=== PATIENT | male | born 1980 | race African-American/Black ===

== ENCOUNTER 2017-01-24 10:02 | Inpatient (IN) | payer OTHER ==
--- NOTE | ~2017-01-24 | PN ---
Unit #: [id number] #: [id number] Patient: ISAI AUGUSTINE [id number] [facility] [address] [place] [address] [id number] I MR#: [id number] NAME: ISAI AUGUSTINE ROOM: [facility] Age: 36 Sex: M Admission Date: 01/24/2017 : 1980 Attending Physician: Alina Magallon M.D. Admitting Physician: Alina Magallon M.D. Primary Care Physician: Primary Care Physician Lety ACEVES PROGRESS NOTES DATE OF SERVICE: 01/25/2017 SUBJECTIVE Mr. Augustine is a 36-year-old male who was seen today and chart was reviewed, and case was discussed with the staff. He has been anxious, withdrawn, rather seclusive to himself. Meanwhile, he has been cooperative with treatment recommendation and has been taking medications and tolerating them fairly well with no reported side effects. MENTAL STATUS EXAMINATION Young male who was casually dressed with a fair personal hygiene and appears to be in no acute distress or discomfort. He was awake and alert on interaction with intact orientation. His mood was anxious with a congruent affect. He denies any suicidal or homicidal ideation, and also denies any auditory or visual hallucinations. His insight and judgment remain slightly impaired. TREATMENT PLAN 1. We will continue him on his current treatment protocol. We will monitor his response to the medication and make further adjustments as needed. We will recommend initiating antidepressant anxiolytic therapy. 2. Supportive therapy was provided to the patient. 3. We will continue to follow up. Dictated by... Pawan Muro/carlosl TD: 01/26/2017 07:46 JOB #: [id number] Unit #: [id number] #: [id number] Patient: ISAI AUGUSTINE PEAANOMY PROGRESS NOTES Page 1 of 1 X Alina Magallon MD PROGRESS NOTE
--- NOTE | ~2017-01-24 | DS ---
Unit #: [id number] #: [id number] [facility]: [facility]AG[facility] [id number] [facility] [place] [address] [id number] I MR#: [id number] NAME: ISAI MONDRAGON ROOM: [facility] Age: 36 Sex: M Admission Date: 01/24/2017 : 1980 Discharge Date: 01/28/2017 Attending Physician: Alina Magallon M.D. Primary Care Physician: Primary Care Physician No DISCHARGE SUMMARY IDENTIFYING DATA Mr. Mondragon is a 26-year-old male, who was self-referred to the hospital. DISCHARGE DIAGNOSES Psychiatric: Major depressive disorder, recurrent, moderate, without psychotic features; alcohol dependence, moderate, in acute withdrawals. Medical: None. Stressors: Moderate psychosocial stressors. HISTORY OF PRESENT ILLNESS Please see initial psychiatric evaluation for details. PAST PSYCHIATRIC HISTORY Please see initial psychiatric evaluation for details. PAST MEDICAL HISTORY Please see initial psychiatric evaluation for details. HOSPITAL COURSE The patient was admitted to the adult psychiatric unit at [facility] and was oriented to the hospital environment. Routine p.r.n. medications were initiated and he was started back on his home medications and medications were adjusted, and he was started on Effexor and Seroquel. Medications were gradually titrated up, however, the patient was seemed to be showing poor insight into his situation. He decided that he wanted to leave against medical advice, and he was denying any suicidal ideation, intent, or plan. He was not meeting criteria for involuntary psychiatric hospitalization , and as such, it was decided that he will be discharged home and will continue treatment on an outpatient basis. DISCHARGE MEDICATIONS None. DISCHARGE CONDITION Stable. PROGNOSIS Guarded. Dictated by... Alina Magallon M.D. Unit #: [id number] #: [id number] Patient: ISAI MONDRAGON IAA/modl TD: 02/25/2017 13:10 JOB #: [id number] DISCHARGE SUMMARY Page 1 of 1 X Alina Magallon MD X DISCHARGE SUMMARY
--- NOTE | ~2017-01-24 | HP ---
Unit #: [id number] #: [id number] Patient: ISAI AUGUSTINE [id number] [facility] [address] [place] [address] [id number] I MR#: [id number] NAME: ISAI AUGUSTINE ROOM: 71 Age: 36 Sex: M Admission Date: 01/24/2017 : 1980 Attending Physician: Alina Magallon M.D. Admitting Physician: Alina Magallon M.D. Primary Care Physician: Primary Care Physician No HISTORY AND PHYSICAL HISTORY OF PRESENT ILLNESS The patient is a 36-year-old male admitted to [facility] on 01/24/2017 for anxiety and aggression. PAST MEDICAL HISTORY The patient denies. PAST SURGICAL HISTORY Appendectomy. SOCIAL HISTORY The patient is unemployed. He lives with his and his daughter. He smokes one pack of cigarettes per week. Smokes four joints per day and uses opiates and benzodiazepines on a weekly basis. FAMILY MEDICAL HISTORY Noncontributory. ALLERGIES No known drug allergies. CURRENT MEDICATIONS The patient is not on any home medications. REVIEW OF SYSTEMS CONSTITUTIONAL: No fever or chills. HEENT: Denies any sore throat, ear pain or runny nose. CARDIOVASCULAR: Denies chest pain, irregular heart rhythm or palpitations. CHEST: Denies shortness of breath or cough. No hemoptysis. GASTROINTESTINAL: Denies nausea, vomiting, diarrhea or chronic constipation. ENDOCRINE: Denies history of increased thirst or urination. No recent significant weight loss or gain. GENITOURINARY: Denies dysuria, frequency, or hematuria. SKIN: Denies any rashes. HEMATOLOGIC: Denies history of increased bleeding or bruising. MUSCULOSKELETAL: Denies any hot, swollen joints. No generalized muscle pain. NEUROLOGIC: Denies problems with vision or speech. No frequent, severe headaches. No numbness, tingling or weakness in any extremities. Denies loss of bladder or bowel control. Unit #: [id number] #: [id number] Patient: ISAI AUGUSTINE PHYSICAL EXAM GENERAL: He is awake, alert and oriented in no acute distress. VITAL SIGNS: Temperature 98.6, heart rate 70, respiration 18, blood pressure 120/77. SKIN: Warm and dry without rash or lesion. HEENT: Normocephalic. TMs not viewed. Oral and nasal passages clear. Conjunctivae clear. PERRLA. EOMs intact. NECK: Supple without lymphadenopathy or thyromegaly. HEART: Regular rate and rhythm without murmur. LUNGS: Clear. ABDOMEN: Soft, nontender. : Not done. EXTREMITIES: No evidence of cyanosis, clubbing or edema. Moves all without focal deficit. NEUROLOGICAL: Grossly within normal limits. Cranial Nerves: II: Visual light are intact. III, IV AND : Extraocular movements are intact. Pupils are equal, round and reactive to light. V: Facial sensation is grossly normal. VII: Facial movements and expression are normal. VIII: Auditory acuity grossly intact. IX, X: Uvula is midline. Phonation is normal. XI: Patient shrugs shoulders and turns head normally. XII: Tongue protrudes in the midline. Sensory and Motor Function: Sensory and motor sensation is grossly normal. Motor: moves all extremities well. IMPRESSION 1. Psychiatric admission. 2. Polysubstance use. RECOMMENDATIONS Psychiatric per psychiatrist. MEDICAL: No contraindication to participate in facility activities. MEDICAL PROGNOSIS Good. MEDICAL CONDITION Stable. Dictated by... Ian Vieyra/cuco TD: 01/25/2017 00:06 JOB #: [id number] Unit #: [id number] #: [id number] Patient: ISAI AUGUSTINE HISTORY AND PHYSICAL Page 1 of 1 X CHARLES ZAVALA APRN HISTORY AND PHYSICAL
--- NOTE | ~2017-01-24 | PN ---
Unit #: [id number] #: [id number] Patient: ISAI AUGUSTINE [id number] [facility] [address] [place] [address] [id number] I MR#: [id number] NAME: ISAI AUGUSTINE ROOM: [facility] Age: 36 Sex: M Admission Date: 01/24/2017 : 1980 Attending Physician: Alina Magallon M.D. Admitting Physician: Alina Magallon M.D. Primary Care Physician: Primary Care Physician Lety MCKENZIE NOTES DATE OF SERVICE 01/26/2017 DISCUSSION Mr. Augustine is a 36-year-old male who was seen today. Chart was reviewed and case was discussed with staff. He has been anxious, withdrawn, depressed, and rather seclusive to himself but has not shown any agitation or irritability. Meanwhile, he has been taking his medications which were just initiated yesterday without any tolerability issues but has not been able to show any therapeutic response yet. MENTAL STATUS EXAMINATION Young male who is casually dressed with fair personal hygiene, appears to be in no acute distress or discomfort. The patient was awake and alert with impaired attention and concentration. His mood is anxious with congruent affect. He denies any suicidal or homicidal ideations and also denies any auditory or visual hallucinations. His insight and judgment remain slightly impaired. TREATMENT PLAN 1. We will continue him on his current medications and treatment protocol. We will monitor his response to the medications and make further adjustments as needed. 2. We will continue to follow up. Dictated by... Pawan Muro/lillie TD: 01/27/2017 08:58 JOB #: [id number] Unit #: [id number] #: [id number] Patient: ISAI AUGUSTINE PROGRESS NOTES Page 1 of 1 X Alina Magallon MD PROGRESS NOTE
--- NOTE | ~2017-01-24 | PN ---
Unit #: [id number] #: [id number] Patient: ISAI AUGUSTINE [id number] [facility] [address] [place] [address] [id number] I MR#: [id number] NAME: ISAI AUGUSTINE ROOM: [facility] Age: 36 Sex: M Admission Date: 01/24/2017 : 1980 Attending Physician: Alina Magallon M.D. Admitting Physician: Alina Magallon M.D. Primary Care Physician: Primary Care Physician Lety MCKENZIE NOTES DATE OF SERVICE 01/27/2017 DISCUSSION Mr. Augustine is a 36-year-old male with mood disorder who was seen today. Chart was reviewed and case was discussed with the staff. He has been anxious, withdrawn, and rather seclusive to himself and was lying in his bed and reports not feeling better and reported that he has not been sleeping, and his depression is not getting any better. Meanwhile, he has been taking the medications and tolerating them fairly well with no reported side effects. MENTAL STATUS EXAMINATION Young male who is casually dressed with fair personal hygiene, appears to be in no acute distress or discomfort. He was awake and alert on interaction with intact orientation. His mood is anxious and depressed with congruent affect. His speech is slow and goal-directed. He reports having suicidal ideation but denies any homicidal ideations and also denies any auditory or visual hallucinations. His insight and judgment remain slightly impaired. TREATMENT PLAN 1. We will continue him on his current medications and treatment protocol. We will monitor his response to the medications and make further adjustments as needed. 2. We will continue to follow up. Dictated by... Pawan Muro/lillie TD: 01/28/2017 12:29 JOB #: [id number] Unit #: [id number] #: [id number] Patient: ISAI AUGUSTINE PROGRESS NOTES Page 1 of 1 X Alina Magallon MD PROGRESS NOTE
--- NOTE | ~2017-01-24 | PN ---
Unit #: [id number] #: [id number] Patient: ISAI AUGUSTINE [id number] [facility] [address] [place] [address] [id number] I MR#: [id number] NAME: ISAI AUGUSTINE ROOM: [facility] Age: 36 Sex: M Admission Date: 01/24/2017 : 1980 Attending Physician: Alina Magallon M.D. Admitting Physician: Alina Magallon M.D. Primary Care Physician: Primary Care Physician Lety ACEVES PROGRESS NOTES DATE 01/28/2017 DISCUSSION Mr. Augustine is a 36-year-old, male who was seen today and chart was reviewed and case was discussed with the staff. He has been anxious, withdrawn, depressed and rather seclusive to himself. He has been cooperative with treatment recommendations and has been taking medications and tolerating them fairly well with no reported side effects. MENTAL STATUS EXAM Young male who was casually dressed with fair personal hygiene, appears to be in no acute distress or discomfort. He was awake and alert on interaction with intact orientation. His mood was anxious and depressed with congruent affect. His speech was slow and goal directed. He denies any current suicidal or homicidal ideation. Also, denies any auditory or visual hallucinations. His insight and judgement remains slightly impaired. TREATMENT PLAN 1. We will continue him on his current medications and treatment protocol. We will monitor his response to the medication and make further adjustments as needed. 2. We will continue to follow up. Dictated by... Pawan Muro/cuco TD: 02/01/2017 02:04 JOB #: [id number] Unit #: [id number] #: [id number] Patient: ISAI AUGUSTINE PEANAOMY PROGRESS NOTES Page 1 of 1 X Alina Magallon MD PROGRESS NOTE
--- NOTE | ~2017-01-24 | PA ---
Unit #: [id number] #: [id number] Patient: ISAI MONDRAGON [id number] [facility] [address] [place] [address] [id number] I MR#: [id number] NAME: ISAI MONDRAGON ROOM: [facility] Age: 36 Sex: M Admission Date: 01/24/2017 : 1980 Date of Assessment: 01/24/2017 Attending Physician: Alina Magallon M.D. Admitting Physician: Alina Magallon M.D. Primary Care Physician: Primary Care Physician No PSYCHIATRIC ASSESSMENT DATE OF SERVICE 01/24/2017. IDENTIFYING DATA Mr. Mondragon is a 36-year-old male who is a resident of [place], [place] and was self-referred to the hospital and was accompanied by his . CHIEF COMPLAINT "I feel like I'm about to lose my mind." HISTORY OF PRESENT ILLNESS Mr. Mondragon is a 36-year-old male who was self-referred to the hospital. Upon presentation, he stated that he feels like he is about to lose his mind and "I feel like to have combat, my temper just being calm just a moment, just allowed for a minute. I don't want to sit around crying in front of my daughter, I get anxiety attacks, they help to get a brown bags out and smoke weed as much as possible, one minute I'm calm, cool, and collected the next minute, I'm ready to snap." The patient's stated "I'm worried about him, generally I feel like I cannot help him. My worries that I don't know what can be done to help him. One time he tried to hang himself, but the thing broke and he has been struggling for few years and best friend in the same year, I got cancer and I was sick. His depression started from there, history of great-uncle , no where so that I added onto it and he has had some friends arguing and he is in the middle of it. I think that is what broken down he was worried about it all day long. Yesterday he woke me up and said that what can I do to get some help." The patient reports that the patient has been depressed for the past years, but has been decompensating over the past several months and in the past 2 months, the patient has attempted to hang himself, and is overdosed and he has a temper, he can be aggressive and his mood is unpredictable and changes frequently. He does report increasing depression, anxiety, irritability, restlessness, feelings of hopelessness and helplessness, and suicidal ideations and recommendation for inpatient level of care for safety and stabilization was made. SUBSTANCE ABUSE HISTORY The patient has history of experimentation with alcohol, cannabis, opioids, and amphetamines, and benzodiazepines, though he reports cannabis has been his drug of choice as he has been smoking 4 joints on daily basis. PAST PSYCHIATRIC HISTORY The patient has not had any prior inpatient or outpatient psychiatric Unit #: [id number] #: [id number] Patient: ISAI MONDRAGON treatment. Review of the medical records indicate that currently he is not active in any treatment program, is not seeing a psychiatrist, and not taking any psychotropic medications. PAST MEDICAL HISTORY No acute or chronic medical illnesses. ALLERGIES No known medication allergies. CURRENT MEDICATIONS None. PERSONAL AND SOCIAL HISTORY A 36-year-old male who reports that he is and lives at home with his and his 9-years-old daughter and is unemployed, and has fairly decent social support system. MENTAL STATUS EXAMINATION Young male who was casually dressed with fair personal hygiene, appears to be in no acute distress or discomfort. He was awake and alert on interaction with intact orientation to time, place, and person. His mood was anxious and depressed with a congruent affect. His speech was slow and restricted in content. His thought processes were disorganized with some looseness of associations and flight of ideas and suicidal ideations. His insight and judgment remain significantly impaired. DIAGNOSTIC IMPRESSION Psychiatric: Major depressive disorder, recurrent, moderate, without psychotic features; generalized anxiety disorder; cannabis dependence, moderate; alcohol dependence, moderate and acute withdrawals. Medical: None. Stressors: Moderate psychosocial stressors. TREATMENT PLAN 1. The patient has presented with history of substance abuse and mood disorder, and has been decompensating and will need inpatient hospitalization for safety and stabilization. We will start him back on his home medications. We will adjust the medications and monitor response. 2. Supportive therapy was provided to the patient. 3. Safe, structured, and nourishing environment will be provided. ESTIMATED LENGTH OF STAY 5 to 7 days. ABILITY TO HELP SELF Limited. WILLINGNESS TO HELP SELF The patient appears to be willing to help self. STRENGTHS 1. Communicative. 2. Cooperative. PROBLEMS 1. Chronic dysphoric symptoms. 2. Chronic chemical dependency. Unit #: [id number] #: [id number] Patient: ISAI MONDRAGON 3. Poor social support system. DISCHARGE CRITERIA This will be contingent upon the patient's ability to go through detox without having any significant withdrawal symptoms as well as his ability to stay safe to himself, particularly after discharge from the hospital. Dictated by... Pawan Muro/evelyn TD: 01/25/2017 14:05 JOB #: [id number] PSYCHIATRIC ASSESSMENT Page 1 of 1 X Alina Magallon MD PSYCHIATRIC ASSESSMENT
[2017-01-25 09:29] LABS: BASOPHIL# 0.1 X10e3 (0-0.3); BASOPHIL% 0.6 % (0-2.5); EOSINOPHIL# 0.1 X10e3 (0-0.7); EOSINOPHIL% 0.6 % (0.0-7.0); HEMATOCRIT 44.4 % (38.0-50.0); HEMOGLOBIN 14.5 gm/dL (13.0-16.0); LYMPHOCYTE% 27.5 % (17.0-45.0); MEAN CELL VOLUME 84.3 FL (83-96); MEAN CORPUSCULAR HEMOGLOBIN 27.5 PG (28-34); MEAN CORPUSCULAR HGB CONC 32.7 g/dL (30-36); MEAN PLATELET VOLUME 8.2 FL (6.5-11.5); MONOCYTE# 1.1 X10e3 (0-1.0); MONOCYTE% 9.6 % (3.0-12.0); NEUTROPHIL# 6.8 X10e3 (1.5-7.1); NEUTROPHIL% 61.7 % (40-75); PLATELET COUNT 247 X10e3 (140-420); RED BLOOD COUNT 5.27 X10e (3.90-5.60); RED CELL DISTRIBUTION WIDTH 13.8 % (11.0-15.5)
[2017-01-25 09:33] LABS: URINE APPEARANCE TURBID; URINE BILIRUBIN NEG (NEG); URINE BLOOD 2+ (NEG); URINE COLOR YELLOW; URINE GLUCOSE NEG (NEG); URINE KETONE TRACE (NEG); URINE LEUKOCYTE ESTERASE TRACE (NEG); URINE NITRATE NEG (NEG); URINE PROTEIN TRACE (NEG)
[2017-01-25 09:35] LABS: ALBUMIN SERUM 4.7 g/dL (3.5-5.0); CALCIUM SERUM 9.5 mg/dL (8.4-10.2); GLOM FILT RATE Estimated 112.5 mL/min (>60); POTASSIUM 3.9 mmol/L (3.5-5.1); PROTEIN TOTAL SERUM 7.7 g/dL (6.0-8.3)
[2017-01-25 09:39] LABS: URINE BACTERIA AUWI NEG (NEGATIVE); URINE SQUAMOUS EPITHELIAL CELL FEW /[HPF]
[2017-01-25 09:44] LABS: DIFF IND NO
[2017-01-25 10:33] LABS: AMPHETAMINE NEG (NEG); BARBITURATES NEG (NEG); BENZODIAZEPINES POS (NEG); COCAINE NEG (NEG); MARIJUANA POS (NEG); OPIATES NEG (NEG); TRICYCLIC ANTIDEPRESSANTS NEG (NEG); U METHADONE NEG (NEG)
== END 2017-01-28 09:20 | disposition left against medical advice (07) | DRG 885 ==
LOC: P1E 10:02
PROVIDERS: Psychiatry & Neurology Psychiatry
PROC: HZ2ZZZZ Detoxification Services for Substance Abuse Treatment (ICD-10-PCS; principal; 2017-01-24)
DX: F33.1 Major depressive disorder, recurrent, moderate (principal); F10.239 Alcohol dependence with withdrawal, unspecified; F17.210 Nicotine dependence, cigarettes, uncomplicated; F41.1 Generalized anxiety disorder; F12.20 Cannabis dependence, uncomplicated
CPT/HCPCS: 80053; 80307; 81003; 85025; 86592